=== PATIENT | female | born 1965 | race Caucasian/White ===

== ENCOUNTER 2025-01-28 18:15 | Emergency (ER) | payer OTHER, SELFPAY ==
--- NOTE | 2025-01-28 18:16 | ECG_ITS ---
Test Reason : CHEST PAIN Blood Pressure : */* mmHG Vent. Rate : 104 BPM Atrial Rate : 104 BPM P-R Int : 144 ms QRS Dur : 94 ms QT Int : 336 ms P-R-T Axes : 67 1 39 degrees QTcB Int : 441 ms Sinus tachycardia with Premature atrial complexes Minimal voltage criteria for LVH, may be normal variant ( James product ) Borderline ECG No previous ECGs available Referred By: Generic ED Physician Electronically Signed By: ALLEN ANDRES
[2025-01-28 18:39] VITALS: BP 174/79; PULSE 103; RESP 18; TEMP 36.4; O2SAT 96; BMI 39.5
--- NOTE | 2025-01-28 18:40 | ED_ITS ---
HPI - General Adult General Chief complaint: General Medical Stated complaint: heart racing and fluttering Time Seen by Provider: 01/28/25 19:20 Source: patient Mode of arrival: ambulatory Limitations: no limitations History of Present Illness ED Provider: DR. Charles HPI narrative: 60-year-old female with history of HTN patient takes metoprolol, HCTZ, and amlodipine, known history of palpitation secondary to PVCs that has been controlled with metoprolol, hyperthyroidism s/p hemithyroidectomy not taking any hormonal replacement presented with 3 days of feeling palpitation, no chest pain, patient is compliant with her medications, patient drinks 1 cup of caffeinated coffee a day, also eat 2 small pieces of dark chocolate almost everyday, no smoking, no use of marijuana or any other drugs. No recent travel, no lower extremity swelling or tenderness, no history of DVT or pulmonary embolism. Related Data Allergies Allergy/AdvReac Type Severity Reaction Status Date / Time Penicillins (PCN) Allergy Severe ANAPHYLAXIS Verified 01/28/25 18:45 Review of Systems 2 Review of Systems: All other systems are reviewed and are negative Constitutional: Reports as per HPI and Reports no additional constitutional complaints Eyes: Reports as per HPI and Reports no additional eye complaints Reports system reviewed and no additional complaints, except as documented Cardiovascular: Reports as per HPI and Reports no additional cardiovascular complaints Respiratory: Reports as per HPI and Reports no additional respiratory complaints Gastrointestinal: Reports as per HPI and Reports no additional gastrointestinal complaints Genitourinary: Reports no additional female genitourinary complaints Musculoskeletal: Reports no additional musculoskeletal complaints Skin/Breast: Reports system reviewed and no additional complaints, except as docu Psychiatric: Reports no additional psychiatric complaints Endocrine: Reports no additional endocrine complaints Hematologic/Lymphatic: Reports no additional hematologic/lymphatic complaints Allergic/Immunologic: Reports no additional allergic/immunologic complaints Reports system reviewed and no additional complaints, except as documented and Reports Abnormal speech present [facility] Social History Social History Smoked in Last 30 Days: No Use of substances other than those prescribed or required for medical reasons: No Advance Directives: No Advance Directives Information Provided: No Physical Exam ED Vital Signs: Vital Signs - 24 hr 01/28/25 18:39 01/28/25 19:56 01/28/25 20:41 Temperature 97.6 F Pulse Rate 103 H 89 85 Respiratory Rate 18 19 Blood Pressure 174/79 H 144/91 H 144/91 H Pulse Oximetry 96 95 Oxygen Delivery Method Room Air Room Air 01/28/25 22:10 Temperature Pulse Rate 82 Respiratory Rate 18 Blood Pressure 134/57 L Pulse Oximetry 95 Oxygen Delivery Method Room Air BMI result Body Mass Index 39.5 Vital signs have been reviewed and appear to be correct. Blood pressure elevated. Heart rate normal. Respiratory rate normal. Temperature normal. Oxygen saturation normal. Appearance: Alert. Oriented X3. No acute distress. Head: Normal external exam. Normocephalic. Atraumatic. No Magana signs noted. No raccoon eyes noted Eyes: PERRLA. EOMI. Conjunctiva and sclera normal. Eyelids normal. ENT: TM's Normal. Pharynx normal. Uvula midline. Moist mucous membranes. No trismus noted. No drooling noted. No muffled voice noted. Neck: Normal inspection. Neck supple. FROM. No adenopathy. Thyroid Normal. No meningeal signs. No neck mass noted. CVS: Normal heart rate and rhythm. Heart sound normal. No murmurs noted. Pulses normal throughout. Respiratory: No respiratory distress. Painless inspiration. Breath sounds normal. No wheezes/rales/rhonchi noted. Chest nontender. No accessory muscle usage noted or decreased air movement noted. Abdomen: Soft and nontender. Bowel sounds normal in all 4 quadrants. No distention noted. No organomegaly noted. No visible injury noted. Back: No CVA tenderness. Full range of motion noted. Skin: Skin warm and dry. Normal skin color. Normal skin turgor. No rashes/lesions/lacerations noted. Extremities: No lower extremity edema. Extremities exhibit normal range of motion. Extremities nontender. Neuro: Oriented X 3. Cranial nerve exam: II-XII are grossly intact No motor deficit. No sensory deficit. Reflexes normal. Course Course Course Narrative: RME, this is a rapid medical exam performed by Harley Chisholm please refer to primary provider for complete H&P- 60-year-old female with a history of known PVCs presents for evaluation of palpitations over the last few days. Her symptoms have been worsening. She takes metoprolol 50 mg in the morning which she did take today. EKG performed on arrival, plan for labs Reevaluation(s) Reevaluation #1: Patient received 1 extra dose of metoprolol 50 mg in the emergency department, no more palpitation, repeat EKG shows no PACs. Normal thyroid hormone, negative troponin 2nd troponin will be checked by Dr. Ochoa if negative patient can go home and follow-up with her PCP and will refer to Dr. Hairston. Time: 21:00 Reevaluation #2: Patient improving after metoprolol. No further episodes of palpitations. Repeat cardiac enzyme is negative. Using shared decision making, plan for discharge home to follow-up with primary care and/or specialist. Patient understands and agrees with plan for discharge. Discharged home in stable condition. Time: 00:13 Medications Administered Discontinued Medications Generic Name Dose Route Start Last Admin Trade Name Freq PRN Reason Stop Dose Admin Metoprolol Tartrate 50 mg 01/28/25 19:47 01/28/25 20:41 Metoprolol Tartrate 50 Mg Tablet PO 01/28/25 19:48 50 mg ONCE ONE Administration Protocol Medical Decision Making Differential Diagnosis Differential Diagnoses: The differential diagnosis associated with the presentation includes (Dysrhythmia, electrolyte derangement, severe anemia, thyroid abnormality, ACS, anxiety.) Admission/Observation Consideration of admission/observation: Escalation of care including admission/observation considered Lab Data MDM Lab Attestation statement: I reviewed the patient's lab results. 01/28/25 18:45 01/28/25 18:45 Labs: Lab Results 01/28/25 01/28/25 Range/Units 18:45 20:32 WBC 10.8 (4.8-10.8) X10*3/uL RBC 4.43 (4.20-5.50) X10*6/uL Hgb 13.2 (12.0-16.0) g/dl Hct 40.3 (37.0-47.0) % MCV 91.0 (80.0-98.0) fL MCH 29.8 (27.0-33.0) pg MCHC 32.8 (31.0-35.0) g/dl RDW 12.6 (11.0-16.0) % Plt Count 275 (160-400) X10*3/uL MPV 10.5 (9.4-12.3) fL Immature Gran % (Auto) 0.3 (0.0-0.4) % Neut % (Auto) 68.2 (45-73) % Lymph % (Auto) 22.5 (20-40) % [place] % (Auto) 8.0 (2-11) % Eos % (Auto) 0.7 (0-4) % Baso % (Auto) 0.3 (0-2) % Lymph # (Auto) 2.4 (1.2-4.9) X10*3/uL [place] # (Auto) 0.9 (0.1-1.2) X10*3/uL Eos # (Auto) 0.1 (0.0-0.4) X10*3/uL Baso # (Auto) 0.0 (0.0-0.2) X10*3/uL Abs Immat Gran (auto) 0.03 (0.00-0.03) X10*3/uL Absolute Neuts (auto) 7.4 (2.0-8.3) x10*3/uL Absolute Nucleated RBC 0.000 (0.0-0.012) X10*3/uL Nucleated RBC % (auto) 0.0 (0.0-0.2) /100WBC Sodium 143 (135-145) mmol/L Potassium 3.9 (3.3-5.1) mmol/L Chloride 103 (96-108) mmol/L Carbon Dioxide 29 (22-29) mmol/L Anion Gap 15 (12-20) BUN 19 H (9-16) mg/dL Creatinine 0.71 (0.5-1.4) mg/dL Estim Creat Clear Calc 107.8 Estimated GFR > 60 Random Glucose 146 H (60-115) mg/dL Calcium 9.8 (8.4-10.2) mg/dL Magnesium 2.1 (1.6-2.6) mg/dL Total Bilirubin 0.2 (0.0-1.0) mg/dL AST 25 (5-31) U/L ALT 24 (0-31) U/L Alkaline Phosphatase 103 (39-117) U/L Troponin I High Sens < 2.7 < 2.7 (<3.5-17.0) ng/L Total Protein 8.2 H (6.5-8.0) g/dL Albumin 4.6 (3.5-5.0) g/dL TSH 1.84 (0.32-4.0) uIU/mL Discharge Plan Discharge Clinical Impression: PAC (premature atrial contraction), Palpitation Patient Disposition: Home, Self-Care Instructions: Premature Atrial Contractions (ED) Additional Instructions: Abstrain from drinking excessive coffee or eating too much chocolate. Take your medicine as instructed. Follow-up with Dr. Hairston if symptoms persist to consider Holter monitor. Referrals: Tanner Santana MD [Primary Care Provider, Medical] Slim Hairston MD [Physician, Cardiology] Print Language: Nigerian
[2025-01-28 18:52] LABS: MANUAL DIFF FLAG NO
[2025-01-28 18:53] LABS: Hematocrit 40.3 % (37.0-47.0); Hemoglobin 13.2 g/dl (12.0-16.0); Imm Gran Abs Auto 0.03 X10*3/uL (0.00-0.03); Imm Gran Pct Auto 0.3 % (0.0-0.4); Lymphocytes Absolute Auto 2.4 X10*3/uL (1.2-4.9); Mean Corpuscular HGB Conc 32.8 g/dl (31.0-35.0); Mean Corpuscular Hemoglobin 29.8 pg (27.0-33.0); Mean Corpuscular Volume 91.0 fL (80.0-98.0); NRBC Abs Auto 0.000 X10*3/uL (0.0-0.012); NRBC Pct Auto 0.0 /100WBC (0.0-0.2); Platelet Count 275 X10*3/uL (160-400); Red Blood Count 4.43 X10*6/uL (4.20-5.50); White Blood Count 10.8 X10*3/uL (4.8-10.8)
--- OUTSIDE RECORDS SUMMARY | 2025-01-28 19:06 | XMS_ITS | Clinical Summary ---
Author Organization [facility] Address [address] [place] [address] Phone Care Team Providers Care Life Underwriter Name Role Phone Tanner Santana MD Primary Care Provider [phone] Allergies Active Allergy Reactions Criticality Noted Date Comments Lisinopril Anaphylaxis High 04/13/2024 Penicillins Anaphylaxis High 04/13/2024 Medications EPINEPHrine (EpiPen 2-Kevin) 0.3 mg/0.3 mL injection Inject 0.3 mL (0.3 mg total) into the thigh. 07/26/2020 Active amLODIPine (NORVASC) 10 mg tablet Take 1 tablet (10 mg total) by mouth 1 (one) time each day. 08/04/2023 Active hydroCHLOROthiaz oscar (HYDRODIURIL) 25 mg tablet Take 1 tablet (25 mg total) by mouth 1 (one) time each day. 01/11/2024 Active cholecalciferol (Vitamin D3) 50 mcg (2,000 unit) tablet Take 1 tablet (2,000 Units total) by mouth 1 (one) time each day. Active acetaminophen (TYLENOL 8 HOUR) 650 mg 8 hr tablet Take 1 tablet (650 mg total) by mouth every 8 (eight) hours if needed for mild pain. Do not crush, chew, or split. Active ibuprofen (ADVIL,MOTRIN) 600 mg tablet Take 1 tablet (600 mg total) by mouth 2 (two) times a day. Active metoprolol succinate (TOPROL-XL) 50 mg 24 hr tablet Take 1 tablet (50 mg total) by mouth 1 (one) time each day. Do not crush or chew. Active Encounters Date Type Department Care Team Description 12/28/2024 Telephone Gastroenterology - [address] [facility] [address] [place] [address] Alyson Swartz JORJE 12/26/2024 9:25 AM EDT Anesthesia Event [facility] [address] [place] [address] Juan Coates MD Walsh, Michael, DO 12/26/2024 8:40 AM EDT - 12/26/2024 11:59 PM EDT Hospital Encounter [facility] [address] [place] [address] Yoly Joyner MD Georgette, Nathaniel, CRNA Colon cancer screening Discharge Disposition: Home or Self Care from Last 3 Months Surgical History Surgery Date Site/Laterality Comments THYROID SURGERY PARTIAL HYSTERECTOMY ADENOIDECTOMY LITHOTRIPSY Medical History Medical History Date Comments Kidney stone Hypertension Skin cancer Social History Tobacco Use Types Packs/Day Years Used Date Smoking Tobacco: Former Cigarettes Smokeless Tobacco: Never Tobacco Cessation:Counseling Given: Not Answered Alcohol Use Standard Drinks/Week Comments Yes 0 (1 standard drink = 0.6 oz pur e alcohol) OCASSIONAL Interpersonal Safety Answer Date Record ed Physical Abuse 12/26/2024 Verbal Abuse 12/26/2024 Comments No Sex and Gender Information Value Date Recorded Sex Assigned at Female 04/18/2024 8:33 AM EST Legal Sex Female 11:45 AM EST Gender Identity Female 04/18/2024 8:33 AM EST Sexual Orientation Straight 04/18/2024 8: 33 AM EST Obstetrics History Last Filed Vital Signs Vital Sign Reading Time Taken Comments Blood Pressure 101/61 12/26/2024 10:08 AM EDT Pulse 81 12/26/2024 10:08 AM EDT Temperature 36.6 C (97.9 F) 12/26/2024 9:02 AM EDT Respiratory Rate 18 12/26/2024 10:08 AM EDT Oxygen Saturation 100% 12/26/2024 10:08 AM EDT Inhaled Oxygen Concentration - - Weight 139 kg (306 lb) 12/26/2024 9:02 AM EDT Height 167.6 cm (5' 6 ) 12/26/2024 9:02 AM EDT Body Mass Index 49.39 12/26/2024 9:02 AM EDT Plan of Treatment Health Maintenance Due Date Last Done Comments Breast Cancer Screening 1965 Hepatitis B Vaccines (1 of 3 - 19+ 3-dose series) 1985 Cervical Cancer Screening: Pap Smear 1987 Pneumococcal Vaccine: 50+ Years (1 of 1 - PCV) 01/20/2016 Cholesterol Screening (Lipid Panel) 04/12/2024 HIV Screening 04/12/2024 Hepatitis C Screening 04/12/2024 Social Influencers of Health Screening 04/12/2024 Hypertension/CHF/CAD Annual BMP Blood Test 04/13/2024 Depression Screening 06/01/2024 Influenza Vaccine (#1) 2025 , 03/20/2023, 03/13/2022, Additional history exists DTaP,Tdap,and Td Vaccines (3 - Td or Tdap) 05/15/2026 05/15/2016, 10/22/2006 Colorectal Cancer Screening: Colonoscopy 12/26/2034 12/26/2024 RSV Immunization Adult Patients (1 - 1-dose 75+ series) 2041 Hepatitis A Vaccines Aged Out 03/04/2018, 07/28/19 18 No longer eligible based on patient's age to complete this topic Zoster Vaccines Completed 10/16/2018, 05/07/2018 COVID-19 Vaccine Completed 02/12/2024, , 03/27/2022, Additional history exists HIB Vaccines Aged Out No longer eligi ble based on patient's age to complete this topic HPV Vaccines Aged Out No longer eligi ble based on patient's age to complete this topic IPV Vaccines Aged Out No longer eligi ble based on patient's age to complete this topic MMR Vaccines Aged Out No longer eligi ble based on patient's age to complete this topic Meningococcal ACWY Vaccine Aged Out N o longer eligible based on patient's age to complete this topic Meningococcal B Vaccine Aged Out No l onger eligible based on patient's age to complete this topic RSV Immunization Patients Under 20 months Aged Out No longer eligible based on patient's age to complete this topic Varicella Vaccines Aged Out No longer eligible based on patient's age to complete this topic Medical Devices Implanted Type Area Men'S Locker Room Attendant Device Identifier Shelf Expiration Date Model / Serial / Lot Stent Uret [id number] Stretch W/O Gw - Sn/A - [id number] Implanted:Qty: 1 on 04/20/2024 by Juan Bailey MD at [facility] Stents Right: Ureter [employer] Y 12/08/2026 [id number] / N/A / [id number] Description:RIGHT URETER TALI NT EXCHANGE Procedures Procedure Name Priority Date/Time Associated Diagnosis Comments COLONOSCOPY Routine 12/26/2024 9:47 AM EDT Colon cancer screening TISSUE EXAM Routine 12/26/2024 9:44 AM EDT Colon cancer screening from Last 3 Months Results * COLONOSCOPY Anesthesia - MAC; [facility] ENDOSCOPY (12/26/2024 9:47 AM EDT) Anatomical Region Laterality Modality Endoscopy 12/26/2024 9:27 AM EDT Impressions 12/26/2024 9:47 AM EDT - The examined portion of the ileum was normal. - Diverticulosis in the entire examined colon. - Three 1 to 2 mm polyps in the rectum, removed with a cold snare. Resected and retrieved. - Internal hemorrhoids. - The examination was otherwise normal. Recommendation: - Await pathology results. - Repeat colonoscopy for surveillance based on pathology results. Narrative 12/26/2024 9:[address] [facility] GI Patient Name: Cheyenne Kirkland Procedure Date: 12/26/2024 9:27 AM Date of : 1965 Age: 59 Gender: Female Note Status: Finalized Attending MD: Yoly Joyner MD, Procedure Date No Time: 12/26/2024 Procedure: Colonoscopy Indications: Screening for colorectal malignant neoplasm Providers: Yoly Joyner MD Referring MD: Tanner Santana MD Medicines: Propofol per Anesthesia Complications: No immediate complications. Estimated Blood Loss: Estimated blood loss: none. Procedure: Pre-Anesthesia Assessment: - ASA Grade Assessment: III - A patient with severe systemic disease. After I obtained informed consent, the scope was passed under direct vision. Throughout the procedure, the patient's blood pressure, pulse, and oxygen saturations were monitored continuously.The Colonoscope was introduced through the anus and advanced to the terminal ileum. The colonoscopy was performed without difficulty. The patient tolerated the procedure well. The quality of the bowel preparation was good. Findings: The perianal and digital rectal examinations were normal. The terminal ileum appeared normal. Scattered medium-mouthed diverticula were found in the entire colon. Three sessile polyps were found in the rectum. The polyps were 1 to 2 mm in size. These polyps were removed with a cold snare. Resection and retrieval were complete. Internal hemorrhoids were found during retroflexion. The hemorrhoids were Grade I (internal hemorrhoids that do not prolapse). The exam was otherwise without abnormality. Procedure Code(s): --- Professional --- 87515, Colonoscopy, flexible; with removal of tumor(s), polyp(s), or other lesion(s) by snare technique Diagnosis Code(s): --- Professional --- Z12.11, Encounter for screening for malignant neoplasm of colon D12.8, Benign neoplasm of rectum CPT copyright 2020 [employer]. All rights reserved. The codes documented in this report are preliminary and upon auditing coder review may be revised to meet current compliance requirements. Yoly Joyner MD 12/26/2024 9:47:52 AM This report has been signed electronically.Yoly Joyner MD Number of Addenda: 0 Note Initiated On: 12/26/2024 9:27 AM Scope In: Scope Out: Endoscopy Department at [facility] - [address] [place] [phone] Procedure Note Yoly Joyner MD - 12/26/2024 [facility] GI Patient Name: Cheyenne Kirkland Procedure Date: 12/26/2024 9:27 AM Date of : 1965 Age: 59 Gender: Female Note Status: Finalized Attending MD: Yoly Joyner MD, Procedure Date No Time: 12/26/2024 Procedure: Colonoscopy Indications: Screening for colorectal malignant neoplasm Providers: Yoly Joyner MD Referring MD: Tanner Santana MD Medicines: Propofol per Anesthesia Complications: No immediate complications. Estimated Blood Loss: Estimated blood loss: none. Procedure: Pre-Anesthesia Assessment: - ASA Grade Assessment: III - A patient with severe systemic disease. After I obtained informed consent, the scope was passed under direct vision. Throughout theprocedure, the patient's blood pressure, pulse, and oxygen saturations were monitored continuously.The Colonoscope was introduced through the anus and advanced to the terminal ileum. The colonoscopy was performed without difficulty. The patient tolerated the procedure well. The quality of the bowel preparation was good. Findings: The perianal and digital rectal examinations were normal. The terminal ileum appeared normal. Scattered medium-mouthed diverticula were found inthe entire colon. Three sessile polyps were found in the rectum. The polyps were 1 to 2 mm in size. These polyps were removed with a cold snare. Resection and retrieval were complete. Internal hemorrhoids were found duringretroflexion. The hemorrhoids were Grade I (internal hemorrhoids that do not prolapse). The exam was otherwise without abnormality. Procedure Code(s): --- Professional --- 78910, Colonoscopy, flexible; with removal of tumor(s), polyp(s), or other lesion(s) by snare technique Diagnosis Code(s): --- Professional --- Z12.11, Encounter for screening for malignantneoplasm of colon D12.8, Benign neoplasm of rectum CPT copyright 2020 [employer]. All rights reserved. The codes documented in this report are preliminary and upon auditing coder reviewmay be revised to meet current compliance requirements. Yoly Joyner MD 12/26/2024 9:47:52 AM This report has been signed electronically.Yoly Joyner MD Number of Addenda: 0 Note Initiated On: 12/26/2024 9:27 AM Scope In: Scope Out: Endoscopy Department at [facility] - [address] [place] [phone] IMPRESSION: - The examined portion of the ileum was normal. - Diverticulosis in the entire examined colon. - Three 1 to 2 mm polyps in the rectum, removedwith a cold snare. Resected and retrieved. - Internal hemorrhoids. - The examination was otherwise normal. Recommendation: - Await pathology results. - Repeat colonoscopy for surveillance based on pathology results. Yoly Joyner MD GI~PROCEDURE ORDERABLES Final Result * Tissue exam (12/26/2024 9:44 AM EDT) Final Diagnosis Rectum, three polyps: Mucosal prolapse polyps, three fragments Benign colonic mucosa, one fragment 12/27/2024 10:42 AM EDT [facility] Gross Description A. Large Intestine, Rectum, 3 polyps in colon: Labeled 3 polyps LI rectum . Received in formalin are four soft, jackson-pink polypoid tissues ranging from 0.2 cm to 0.7 cm in greatest diameter with attached mucosa and minimal fecal/food debris, which are inked blue, wrapped in paper and submitted in toto in one cassette, four pieces, multiple levels. TS 12/27/2024 10:42 AM EDT [facility] Disclaimer Unless otherwise specified, all tissue is 10% NB formalin fixed and paraffin embedded. 12/27/2024 10:42 AM EDT [facility] Tissue Rectum structure / Unknown 12/26/2024 9:44 AM EDT 12/26/2024 11:05 AM EDT Yoly Joyner MD LAB PATHOLOGY ORDERABLES Final Result [facility] [address] [place] [address], from Last 3 Months Insurance [facility] Care Teams Life Underwriter Relationship Specialty Start Date End Date Tanner Santana MD [address] [place] [phone] PCP - General Internal Medicine 04/18/24
--- OUTSIDE RECORDS SUMMARY | 2025-01-28 19:06 | XMS_ITS | Encounter Summary ---
Author Organization [facility] Address [address] [place] [address] Care Team Providers Care Performance Improvement Specialist Name Role Phone Tanner Santana MD Primary Care Provider [phone] Encounter Details Date Type Department Care Team (Latest Contact Info) Description 06/21/2024 Lab Requisition [facility] - Main Lab [address] [facility] [place] [address] Meagan Luna PA [address] [place] [address] Hydronephrosis with renal and ureteral calculous obstruction Social History Tobacco Use Types Packs/Day Years Used Date Smoking Tobacco: Never Alcohol Use Standard Drinks/Week Comments Never 0 (1 standard drink = 0.6 oz pur e alcohol) Comments Unknown Sex and Gender Information Value Date Recorded Sex Assigned at Female 04/18/2024 8:33 AM EST Legal Sex Female 11:45 AM EST Gender Identity Female 04/18/2024 8:33 AM EST Sexual Orientation Straight 04/18/2024 8: 33 AM EST documented as of this encounter Plan of Treatment Not on file documented as of this encounter Procedures Procedure Name Priority Date/Time Associated Diagnosis Comments VITAMIN D 25 HYDROXY Routine 06/21/2024 8:01 AM EST Hydronephrosis with renal and ureteral calculous obstruction PARATHYROID HORMONE INTACT Routine 06/21/2024 8:01 AM EST Hydronephrosis with renal and ureteral calculous obstruction documented in this encounter Results * Vitamin D 25 hydroxy (06/21/2024 8:01 AM EST) Vit D, 25-Hydroxy 40.6 30.0 - 80.0 ng/mL LAB CHEMISTRY METHOD 06/21/2024 3:53 PM EST [facility] Blood Venous blood specimen / Unknown 06/21/2024 8:01 AM EST 06/21/2024 2:50 PM EST Meagan BUI LAB BLOOD ORDERABLES Final Res ult [facility] [address] [place] [address], [place] [phone] * Parathyroid hormone intact (06/21/2024 8:01 AM EST) PTH 46.6 18.5 - 88.0 pcg/mL LAB CHEMISTRY METHOD 06/21/2024 3:53 PM EST [facility] Blood Venous blood specimen / Unknown 06/21/2024 8:01 AM EST 06/21/2024 2:50 PM EST Meagan BUI LAB BLOOD ORDERABLES Final Res ult Performing Organization Address City/[facility]/ZIP Co de Phone Number [facility] [address] [place] [address], [place] [phone] documented in this encounter Visit Diagnoses Diagnosis Hydronephrosis with renal and ureteral calculous obstruction documented in this encounter Care Teams Performance Improvement Specialist Relationship Specialty Start Date End Date Tanner Santana MD [facility] [place] [address] PCP - General Internal Medicine 04/18/24 documented as of this encounter
[2025-01-28 19:13] LABS: Alanine Aminotransferase 24 U/L (0-31); Albumin Level 4.6 g/dL (3.5-5.0); Alkaline Phosphatase 103 U/L (39-117); Anion Gap 15 (12-20); Aspartate Amino Transferase 25 U/L (5-31); Blood Urea Nitrogen 19 mg/dL (9-16); Calcium 9.8 mg/dL (8.4-10.2); Carbon Dioxide 29 mmol/L (22-29); Chloride 103 mmol/L (96-108); Creatinine Clr Calc Pharmacy 107.8; Estimated Glomerular Filt Rate > 60; Magnesium 2.1 mg/dL (1.6-2.6); Potassium 3.9 mmol/L (3.3-5.1); Sodium 143 mmol/L (135-145); Total Protein 8.2 g/dL (6.5-8.0)
[2025-01-28 19:16] LABS: Troponin-I High Sensitivity < 2.7 ng/L (<3.5-17.0)
[2025-01-28 19:56] VITALS: BP 144/91; PULSE 89; RESP 19; O2SAT 95
--- NOTE | 2025-01-28 20:30 | ECG_ITS ---
Test Reason : PALP Blood Pressure : */* mmHG Vent. Rate : 85 BPM Atrial Rate : 85 BPM P-R Int : 148 ms QRS Dur : 96 ms QT Int : 368 ms P-R-T Axes : 39 10 38 degrees QTcB Int : 437 ms Normal sinus rhythm Normal ECG When compared with ECG of 28-Jan-2025 18:23, Premature atrial complexes are no longer Present Referred By: Jeronimo Charles Electronically Signed By: ALLEN ANDRES
[2025-01-28 20:41] VITALS: BP 144/91; PULSE 85
[2025-01-28 21:27] LABS: Troponin-I High Sensitivity < 2.7 ng/L (<3.5-17.0)
[2025-01-28 22:10] VITALS: BP 134/57; PULSE 82; RESP 18; O2SAT 95
[2025-01-29 00:40] VITALS: BP 134/66; PULSE 81; RESP 18; TEMP 37.1; O2SAT 95
[2025-01-29 00:41] VITALS: BP 134/66; PULSE 81; RESP 18; TEMP 37.1; O2SAT 95
== END 2025-01-29 00:42 | disposition home or self-care (01) ==
PROVIDERS: Emergency Medicine; Physician Assistant; Emergency Provider Emergency Medicine; PCP Internal Medicine
DX: I49.1 Atrial premature depolarization (principal); R00.2 Palpitations; R07.89 Other chest pain; R00.0 Tachycardia, unspecified; Z79.899 Other long term (current) drug therapy
CPT/HCPCS: 36415; 80053; 83735; 84443; 84484; 85025; 93005; 99283; 99284

== ENCOUNTER → 2025-01-28 18:16 | Outpatient (BNV) | payer OTHER, SELFPAY | PROVIDERS: Emergency Provider Emergency Medicine; PCP Internal Medicine; Visit Provider Internal Medicine | DX: I49.1 Atrial premature depolarization (principal); R00.0 Tachycardia, unspecified; R00.2 Palpitations | CPT/HCPCS: 93010 ==